=== PATIENT | male | born 1990 | race Caucasian/White ===

== ENCOUNTER 2017-01-08 16:37 | Emergency (ER) | payer OTHER ==
[~2017-01-08] VITALS: Ht 180.3 cm; Wt 176.4 kg
[~2017-01-08 16:37] MED LIST: NAPROSYN500 MG PO; NEXIUM40 MG PO
[2017-01-08] MEDS ORDERED: MOTRIN600 MG PO (19:12)
[2017-01-08] MEDS ORDERED: SKELAXIN800 MG PO (19:12)
[2017-01-08 19:23] VITALS: BP 149/95
== END 2017-01-08 19:24 | disposition home or self-care (01) ==
LOC: EME 16:37 → EXP 16:37
DX: S39.012A Strain of muscle, fascia and tendon of lower back, initial encounter (principal); X50.9XXA Other and unspecified overexertion or strenuous movements or postures, initial encounter; Y99.0 Civilian activity done for income or pay
CPT/HCPCS: 99281; 99283